=== PATIENT | female | born 2005 | race Two or more races ===

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

== ENCOUNTER 2024-07-22 07:17 | Emergency (ER) | payer BC ==
[2024-07-22] MEDS ORDERED: Ibuprofen 600 MG Tab PO ONE (07:34)
[2024-07-22] MEDS: Acetaminophen 500 MG Tab PO ONE (07:40)
[2024-07-22] MEDS: Dexamethasone 4 MG Tab PO ONE (07:40)
== END 2024-07-22 08:27 | disposition home or self-care (01) ==
LOC: MW.ED 07:17 → MERGE 07:17 → MW.ED 08:27
DX: O99.512 Diseases of the respiratory system complicating pregnancy, second trimester (principal); J02.9 Acute pharyngitis, unspecified; J98.8 Other specified respiratory disorders; Z3A.17 17 weeks gestation of pregnancy
CPT/HCPCS: 87428; 87651; 99283; A9270; J8540

== ENCOUNTER 2024-08-29 19:14 | Emergency (ER) | payer SELFPAY ==
[2024-08-29] MEDS ORDERED: Sodium Chloride 0.9% 2.5 ML Syringe FLUSH PRN (19:46)
[2024-08-29] MEDS ORDERED: Sodium Chloride 0.9% 10 ML Syringe FLUSH PRN (19:46)
[2024-08-29 20:06] LABS: BASOPHILS ABSOLUTE AUTO 0.05 K/uL (0.00-0.20); BASOPHILS PERCENT AUTO 0.3 % (0.0-1.0); EOSINOPHILS ABSOLUTE AUTO 0.13 K/uL (0.00-0.45); EOSINOPHILS PERCENT AUTO 0.7 % (0.0-6.0); HEMATOCRIT 31.5 % (37.0-47.0); HEMOGLOBIN 10.6 g/dL (12.0-16.0); IMMATURE GRAN ABSOLUTE AUTO 0.17 K/uL (0.00-0.05); IMMATURE GRAN PERCENT AUTO 0.9 % (0.0-0.4); LYMPHOCYTES PERCENT AUTO 16.7 % (24.0-44.0); MEAN CORPUSCULAR HEMOGLOBIN 27.5 pg (28.0-32.0); MEAN CORPUSCULAR HGB CONC 33.7 g/dL (32.0-36.0); MEAN CORPUSCULAR VOLUME 81.6 fL (83.0-99.0); MEAN PLATELET VOLUME 8.7 fL (9.4-12.3); MONOCYTES ABSOLUTE AUTO 1.35 K/uL (0.00-0.80); MONOCYTES PERCENT AUTO 7.3 % (0.0-8.0); NEUTROPHILS ABSOLUTE AUTO 13.73 K/uL (1.80-7.70); NEUTROPHILS PERCENT AUTO 74.1 % (41.0-71.0); PLATELET COUNT,PLT 274 K/uL (150-400); RED BLOOD CELL COUNT 3.86 M/uL (4.10-5.30); WHITE BLOOD CELL COUNT,WBC 18.53 K/uL (3.9-11.3)
[2024-08-29] MEDS: Sodium Chloride 0.9% 1,000 ML IV ONE (20:16)
[2024-08-29 20:38] LABS: A/G RATIO 0.8 (0.9-1.6); ALBUMIN 3.1 g/dL (3.4-5.0); BILIRUBIN TOTAL 0.2 mg/dL (0.2-1.0); CALCIUM 8.1 mg/dL (8.5-10.1); CARBON DIOXIDE,CO2 23.9 mmol/L (21.0-32.0); CREATININE 0.6 mg/dL (0.6-1.0); EST CRCL DRUG DOSING (CG) 112.86 mL/min; POTASSIUM,K 3.5 mmol/L (3.5-5.1); PROTEIN TOTAL,TP 6.9 g/dL (6.4-8.2); TSH ULTRASENSITIVE 0.79 uIU/mL (0.36-3.74)
[2024-08-29 20:51] LABS: APPEARANCE,URINE CLEAR; BILIRUBIN,URINE NEGATIVE (NEGATIVE); COLOR,URINE YELLOW; GLUCOSE,URINE NEGATIVE (NEGATIVE); KETONES,URINE TRACE mg/dL (NEGATIVE); LEUKOCYTE ESTERASE,URINE NEGATIVE (NEGATIVE); NITRITE,URINE NEGATIVE (NEGATIVE); OCCULT BLOOD,URINE NEGATIVE (NEGATIVE); PROTEIN,URINE NEGATIVE (NEGATIVE); UROBILINOGEN,URINE 0.2 EU/dL (<2.0)
== END 2024-08-29 21:48 | disposition home or self-care (01) ==
LOC: MW.ED 19:14
DX: O99.891 Other specified diseases and conditions complicating pregnancy (principal); R10.9 Unspecified abdominal pain; Z3A.17 17 weeks gestation of pregnancy; Z75.3 Unavailability and inaccessibility of health-care facilities
CPT/HCPCS: 36415; 80053; 81003; 84443; 85025; 93005; 96360; 99285; J7030; 93010; 99284

== ENCOUNTER 2024-12-19 14:05 | Inpatient (IN) | payer BC ==
[2024-12-19 15:11] LABS: BASOPHILS ABSOLUTE AUTO 0.04 K/uL (0.00-0.20); BASOPHILS PERCENT AUTO 0.3 % (0.0-1.0); EOSINOPHILS ABSOLUTE AUTO 0.07 K/uL (0.00-0.45); EOSINOPHILS PERCENT AUTO 0.5 % (0.0-6.0); IMMATURE GRAN ABSOLUTE AUTO 0.09 K/uL (0.00-0.05); IMMATURE GRAN PERCENT AUTO 0.6 % (0.0-0.4); LYMPHOCYTES ABSOLUTE AUTO 2.56 K/uL (1.00-4.80); LYMPHOCYTES PERCENT AUTO 17.5 % (24.0-44.0); MEAN PLATELET VOLUME 9.4 fL (9.4-12.3); MONOCYTES ABSOLUTE AUTO 1.05 K/uL (0.00-0.80); MONOCYTES PERCENT AUTO 7.2 % (0.0-8.0); NEUTROPHILS ABSOLUTE AUTO 10.86 K/uL (1.80-7.70); NEUTROPHILS PERCENT AUTO 73.9 % (41.0-71.0); NRBC ABSOLUTE 0.00 K/uL (0.00-0.02); NRBC PERCENT 0.0 /100WBC (0.0-0.2); PLATELET COUNT,PLT 276 K/uL (150-400); RED BLOOD CELL COUNT 4.07 M/uL (4.10-5.30); WHITE BLOOD CELL COUNT,WBC 14.67 K/uL (3.9-11.3)
[2024-12-19 15:59] LABS: A/G RATIO 0.6 (0.9-1.6); ALANINE AMINOTRANSFERASE,ALT 17 IU/L (14-63); ASPARTATE AMNIOTRANSFERASE,AST 16 IU/L (15-37); BILIRUBIN TOTAL 0.2 mg/dL (0.2-1.0); BLOOD UREA NITROGEN,BUN 7 mg/dL (7.0-18.0); CARBON DIOXIDE,CO2 20.1 mmol/L (21.0-32.0); CHLORIDE,CL 105 mmol/L (98-107); CREATININE 0.6 mg/dL (0.6-1.0); GLUCOSE RANDOM 76 mg/dL (74-106); POTASSIUM,K 3.9 mmol/L (3.5-5.1); PROTEIN TOTAL,TP 6.3 g/dL (6.4-8.2); SODIUM,NA 138 mmol/L (136-145)
[2024-12-19 16:05] LABS: CREATININE,URINE RAND 120.3 mg/dL
[2024-12-19 16:10] LABS: ESTIMATED GFR 132 mL/min (>60)
[2024-12-19 16:25] LABS: PROTEIN CREATININE RATIO,URINE 3.8; PROTEIN,URINE RANDOM 456.8 mg/dL (<11.9)
[2024-12-19 17:54] LABS: APPEARANCE,URINE HAZY; GLUCOSE,URINE NEGATIVE (NEGATIVE); OCCULT BLOOD,URINE TRACE-INTACT (NEGATIVE)
[2024-12-19] MEDS ORDERED: Carboprost Tromethamine 250 MCG/1 mL Vial IM PRN (18:01)
[2024-12-19] MEDS ORDERED: Terbutaline 1 MG/ML SDV SUBCUT PRN (18:01)
[2024-12-19] MEDS ORDERED: Water For Irrigation,Sterile 1,000 ML Container IRR PRN (18:01)
[2024-12-19] MEDS ORDERED: Misoprostol 25 MCG (1/4 of 100 MCG) Tab VAG PRN (18:01)
[2024-12-19] MEDS ORDERED: Sodium Chloride 0.9% 2.5 ML Syringe FLUSH PRN (18:08)
[2024-12-19] MEDS ORDERED: Sodium Chloride 0.9% 10 ML Syringe FLUSH PRN (18:08)
[2024-12-19] MEDS ORDERED: ePHEDrine 50 MG/ML SDV IVPUSH PRN (19:27)
[2024-12-19] MEDS ORDERED: dexmedeTOMIDine HCl 200 MCG/2 ML SDV EPIDUR SCH (19:30)
[2024-12-19] MEDS: Lactated Ringers 1,000 ML IV SCH (19:45)
[2024-12-19] MEDS: Misoprostol 25 MCG (1/4 of 100 MCG) Tab VAG PRN (19:55)
[2024-12-20] MEDS: Butorphanol 1 MG/ML SDV IVPUSH PRN (04:24)
[2024-12-20] MEDS: Ropivacaine HCl/PF 400 MG in Premix Bag 1 BAG EPIDUR SCH (11:20)
[2024-12-20] MEDS: Oxytocin/0.9 % Sodium Chloride 30 UNIT/500 ML BAG IV SCH ×2 (12:56→19:10)
[2024-12-20] MEDS: Ondansetron 4 MG/2 ML SDV IVPUSH PRN (20:58)
[2024-12-20] MEDS ORDERED: Lanolin 100% Cream 7 GM Tube TOP PRN (22:08)
[2024-12-20] MEDS: Benzocaine/Menthol 20%-0.5% Spray 78 GM Cannister TOP PRN (23:45)
[2024-12-20] MEDS: Witch Hazel Medicated Pads 40/Jar TOP PRN (23:46)
[2024-12-22 05:53] LABS: BASOPHILS ABSOLUTE AUTO 0.06 K/uL (0.00-0.20); BASOPHILS PERCENT AUTO 0.4 % (0.0-1.0); EOSINOPHILS ABSOLUTE AUTO 0.12 K/uL (0.00-0.45); EOSINOPHILS PERCENT AUTO 0.8 % (0.0-6.0); IMMATURE GRAN ABSOLUTE AUTO 0.13 K/uL (0.00-0.05); IMMATURE GRAN PERCENT AUTO 0.8 % (0.0-0.4); LYMPHOCYTES ABSOLUTE AUTO 4.27 K/uL (1.00-4.80); LYMPHOCYTES PERCENT AUTO 26.8 % (24.0-44.0); MEAN PLATELET VOLUME 9.6 fL (9.4-12.3); MONOCYTES ABSOLUTE AUTO 0.88 K/uL (0.00-0.80); MONOCYTES PERCENT AUTO 5.5 % (0.0-8.0); NEUTROPHILS ABSOLUTE AUTO 10.49 K/uL (1.80-7.70); NEUTROPHILS PERCENT AUTO 65.7 % (41.0-71.0); NRBC ABSOLUTE 0.00 K/uL (0.00-0.02); NRBC PERCENT 0.0 /100WBC (0.0-0.2); PLATELET COUNT,PLT 199 K/uL (150-400); RED BLOOD CELL COUNT 2.62 M/uL (4.10-5.30); WHITE BLOOD CELL COUNT,WBC 15.95 K/uL (3.9-11.3)
== END 2024-12-22 14:20 | disposition home or self-care (01) | DRG 560 ==
LOC: MW.OBCHECK 14:05 → MW.OB 14:06 → MW.OBCHECK 18:30 → OBSVTOIN 12-20 19:10 → MW.OB 12-21 00:32
PROVIDERS: ADMIT Obstetrics & Gynecology Obstetrics; ATTEND Obstetrics & Gynecology Gynecology
PROC: 10E0XZZ Delivery of Products of Conception, External Approach (ICD-10-PCS; principal; 2024-12-20)
PROC: 3E0R3BZ Introduction of Anesthetic Agent into Spinal Canal, Percutaneous Approach (ICD-10-PCS; 2024-12-20)
PROC: 3E033VJ Introduction of Other Hormone into Peripheral Vein, Percutaneous Approach (ICD-10-PCS; 2024-12-20)
PROC: 3E0DXGC Introduction of Other Therapeutic Substance into Mouth and Pharynx, External Approach (ICD-10-PCS; 2024-12-20)
PROC: 0HQ9XZZ Repair Perineum Skin, External Approach (ICD-10-PCS; 2024-12-20)
DX: O99.824 Streptococcus B carrier state complicating childbirth (principal); O72.2 Delayed and secondary postpartum hemorrhage; D62 Acute posthemorrhagic anemia; O14.94 Unspecified pre-eclampsia, complicating childbirth; O70.0 First degree perineal laceration during delivery; Z79.899 Other long term (current) drug therapy; Z37.0 Single live birth; Z3A.39 39 weeks gestation of pregnancy
CPT/HCPCS: 01967; 36415; 51702; 59409; 76805; 76805-26; 80053; 81003; 82570; 84156; 85014; 85018; 85025; 86592; 86850; 86900; 86901; A9270-GY; J0290; J0595; J2405; J2590; J2795; J7120

== ENCOUNTER 2024-12-23 18:49 | Emergency (ER) | payer BC ==
[2024-12-23 19:35] LABS: BASOPHILS ABSOLUTE AUTO 0.04 K/uL (0.00-0.20); BASOPHILS PERCENT AUTO 0.3 % (0.0-1.0); EOSINOPHILS ABSOLUTE AUTO 0.27 K/uL (0.00-0.45); EOSINOPHILS PERCENT AUTO 2.1 % (0.0-6.0); IMMATURE GRAN ABSOLUTE AUTO 0.09 K/uL (0.00-0.05); IMMATURE GRAN PERCENT AUTO 0.7 % (0.0-0.4); LYMPHOCYTES ABSOLUTE AUTO 2.69 K/uL (1.00-4.80); LYMPHOCYTES PERCENT AUTO 20.8 % (24.0-44.0); MEAN PLATELET VOLUME 8.9 fL (9.4-12.3); MONOCYTES ABSOLUTE AUTO 0.78 K/uL (0.00-0.80); MONOCYTES PERCENT AUTO 6.0 % (0.0-8.0); NEUTROPHILS ABSOLUTE AUTO 9.04 K/uL (1.80-7.70); NEUTROPHILS PERCENT AUTO 70.1 % (41.0-71.0); NRBC ABSOLUTE 0.00 K/uL (0.00-0.02); NRBC PERCENT 0.0 /100WBC (0.0-0.2); PLATELET COUNT,PLT 271 K/uL (150-400); RED BLOOD CELL COUNT 2.97 M/uL (4.10-5.30); WHITE BLOOD CELL COUNT,WBC 12.91 K/uL (3.9-11.3)
[2024-12-23 19:59] LABS: A/G RATIO 0.6 (0.9-1.6); ALANINE AMINOTRANSFERASE,ALT 20 IU/L (14-63); ASPARTATE AMNIOTRANSFERASE,AST 32 IU/L (15-37); BILIRUBIN TOTAL 0.2 mg/dL (0.2-1.0); BLOOD UREA NITROGEN,BUN 8 mg/dL (7.0-18.0); CARBON DIOXIDE,CO2 28.4 mmol/L (21.0-32.0); CHLORIDE,CL 104 mmol/L (98-107); CREATININE 0.7 mg/dL (0.6-1.0); GLUCOSE RANDOM 79 mg/dL (74-106); POTASSIUM,K 3.8 mmol/L (3.5-5.1); PROTEIN TOTAL,TP 6.5 g/dL (6.4-8.2); SODIUM,NA 138 mmol/L (136-145)
[2024-12-23 20:01] LABS: ESTIMATED GFR 127 mL/min (>60)
[2024-12-23] MEDS: Misoprostol 50 MCG (1/2 of 100 MCG) Tab VAG ONE (21:39)
== END 2024-12-23 21:57 | disposition home or self-care (01) ==
LOC: MW.ED 18:49
DX: O72.1 Other immediate postpartum hemorrhage (principal); Z79.899 Other long term (current) drug therapy
CPT/HCPCS: 36415; 80053; 85014; 85018; 85025; 86850; 86900; 86901; 96374; 99284; A9270; 99283